=== PATIENT | female | born 1940 | race Caucasian/White ===

== ENCOUNTER 2018-02-22 11:46 | Inpatient (IN) | payer OTHER ==
[~2018-02-22] VITALS: Ht 160 cm; Wt 99.5 kg
[~2018-02-22 11:46] MED LIST: ACETAMINOPHEN325 M1 PO; ADVIL,NUPRIN,M200 MG PO; ASPIR 8181 M1 PO; FIBER THERAPY660 G1 PO; LEVOTHYROXINE75 MCG PO; LISINOPRIL2.5 MG PO; MELATONIN5 M4 PO; NORCO 10/3251 TABLET PO; TRAZODONE HCL50 MG PO; TYLENOL REGULA325 MG PO
[2018-02-22 13:00] VITALS: BP 160/71
[2018-02-22 20:15] VITALS: BP 136/59
[2018-02-23 00:29] VITALS: BP 135/64
[2018-02-23 03:25] VITALS: BP 111/60
[2018-02-23] MEDS ORDERED: TIZANIDINE HCL4 MG PO (07:02)
[2018-02-23] MEDS ORDERED: NORCO 10/3251 TABLET PO ×2 (07:02→07:06)
[2018-02-23 08:09] VITALS: BP 101/59
== END 2018-02-23 10:15 | disposition home or self-care (01) | DRG 517 ==
LOC: SDC 11:46 → 3EAST 17:19 → ENRESERV 19:12 → 3EAST 02-23 10:15
PROC: 01NB0ZZ Release Lumbar Nerve, Open Approach (ICD-10-PCS; principal; 2018-02-22)
DX: M48.062 Spinal stenosis, lumbar region with neurogenic claudication (principal); M47.26 Other spondylosis with radiculopathy, lumbar region; M51.16 Intervertebral disc disorders with radiculopathy, lumbar region; M41.80 Other forms of scoliosis, site unspecified; E66.9 Obesity, unspecified; I10 Essential (primary) hypertension; E03.9 Hypothyroidism, unspecified; Z79.82 Long term (current) use of aspirin; Z88.2 Allergy status to sulfonamides; Z88.1 Allergy status to other antibiotic agents; Z68.39 Body mass index [BMI] 39.0-39.9, adult
CPT/HCPCS: 72020; 76000; 87641; J0131; J1100; J1170; J1200; J2250; J2405; J2710; J2930; J3010; J3370; J3480; J7643; Q0175; S0020